=== PATIENT | male | born 1965 | race Caucasian/White ===

== ENCOUNTER 2019-07-04 10:35 | Emergency (ER) | payer OTHER ==
[2019-07-04 10:47] VITALS: BP 168/99; PULSE 83; TEMP 97.7; BMI 29.0
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
== END 2019-07-04 11:38 | disposition home or self-care (01) ==
LOC: JERFT 10:35
DX: Z04.1 Encounter for examination and observation following transport accident (principal); V59.59XA Passenger in pick-up truck or van injured in collision with other motor vehicles in traffic accident, initial encounter; Y92.414 Local residential or business street as the place of occurrence of the external cause; Y93.89 Activity, other specified; Y99.8 Other external cause status; F79 Unspecified intellectual disabilities
CPT/HCPCS: 99281-25